=== PATIENT | male | born 1970 | race Caucasian/White ===

== ENCOUNTER 2022-10-24 18:34 | Emergency (ER) | payer OTHER ==
[2022-10-24 19:20] LABS: CHLORIDE,CL 102 mmol/L (98-107); SODIUM,NA 139 mmol/L (136-145)
[2022-10-24 19:25] LABS: ANION GAP 14.8 mmol/L (5-15); ESTIMATED GFR 91 mL/min (>=60)
[2022-10-24 19:28] LABS: PTT,PARTIAL THROMBOPLSTIN TIME 31.4 SEC (20.5-30.9)
[2022-10-24] MEDS: Aspirin 325 MG Tab.EC PO ONE (20:00)
== END 2022-10-24 20:00 | disposition short-term general hospital (02) ==
LOC: VM.ED 18:34
DX: R53.1 Weakness (principal); Z88.8 Allergy status to other drugs, medicaments and biological substances; Z79.899 Other long term (current) drug therapy; Z79.01 Long term (current) use of anticoagulants; Z87.891 Personal history of nicotine dependence
CPT/HCPCS: 70450; 80048; 84484; 85025; 85610; 85730; 99285; A9270; 93005; 93010